=== PATIENT | female | born 1970 | race Caucasian/White ===

== ENCOUNTER 2018-08-07 18:07 | Emergency (ER) | payer OTHER ==
[2018-08-07 18:15] VITALS: TEMP 98.2
[2018-08-07] MEDS ORDERED: KETOROLAC 30 MG/ML 1 ML VIAL IM STA (19:06)
[2018-08-07] MEDS ORDERED: HYDROcodone/APAP 5-325MG 1 EACH TAB PO STA (19:06)
[2018-08-07] MEDS ORDERED: METOPROLOL TARTRATE 25 MG TAB PO STA (19:07)
--- NOTE | 2018-08-07 19:50 | ED ---
General Adult HPI - General Chief complaint: Recheck/Abnormal Lab/Rx Stated complaint: leg pain -recheck Time Seen by Provider: 08/07/18 18:53 Source: patient Mode of arrival: wheelchair Limitations: no limitations - History of Present Illness Initial comments: 47-year-old female patient presents to the emergency department for a chief complaint of right leg pain times one day. Patient states that yesterday she was seen here and diagnosed with a proximal fibula fracture and ankle sprain of the right leg. She states that she has not yet picked up her pain medication but has had severe pain for the past day. She states she cannot ambulate on the right leg. She states she wants to make sure nothing is wrong under the cast. Patient has no other complaints at this time including shortness of breath , chest pain, abdominal pain, nausea or vomiting, headache, or visual changes. - Related Data Home Medications Medication Instructions Recorded Confirmed Metoprolol Succinate [Toprol XL] 50 mg PO DAILY 07/15/16 08/07/18 Ammonium Lactate Lotion 1 applic TOPICAL DAILY 08/07/18 08/07/18 [Lac-Hydrin 12% Lotion] Clindamycin Phosphate [Clindagel 1 applic TOPICAL DAILY 08/07/18 08/07/18 1%] Doxycycline Monohydrate 50 mg PO DAILY 08/07/18 08/07/18 Loratadine [Claritin] 10 mg PO DAILY 08/07/18 08/07/18 Previous Rx's Medication Instructions Recorded Hydrocodone/Acetaminophen [[place] 1 tab PO Q6HR PRN #12 tab 08/07/18 5-325] Allergies Allergy/AdvReac Type Severity Reaction Status Date / Time No Known Allergies Allergy Verified 08/07/18 18:15 Review of Systems ROS Statement: Those systems with pertinent positive or pertinent negative responses have been documented in the HPI. ROS Other: All systems not noted in ROS Statement are negative. Past Medical History Past Medical History: Hypertension History of Any Multi-Drug Resistant Organisms: None Reported Past Surgical History: Orthopedic Surgery, Tubal Ligation Past Psychological History: No Psychological Hx Reported Smoking Status: Current every day smoker Past Alcohol Use History: Rare Past Drug Use History: None Reported General Exam Limitations: no limitations General appearance: alert, in no apparent distress Head exam: Present: atraumatic, normocephalic Eye exam: Present: normal appearance, PERRL, EOMI. Absent: scleral icterus, conjunctival injection, periorbital swelling ENT exam: Present: normal exam, mucous membranes moist Neck exam: Present: normal inspection, full ROM. Absent: tenderness, meningismus, lymphadenopathy Respiratory exam: Present: normal lung sounds bilaterally. Absent: respiratory distress, wheezes, rales, rhonchi, stridor Cardiovascular Exam: Present: regular rate, normal rhythm, normal heart sounds. Absent: systolic murmur, diastolic murmur, rubs, gallop, clicks Extremities exam: Present: full ROM (Patient able to move all digits of the right foot), tenderness (Tenderness to the right lateral knee tenderness to the right ankle), normal capillary refill (Capillary refill less than 2 seconds and DP pulse 2+ in the right lower extremity), other (Sensation intact in the right lower extremity) Course Vital Signs 08/07/18 08/07/18 08/07/18 18:11 20:10 20:48 Temperature 98.2 F Pulse Rate 101 H Respiratory 16 Rate Blood Pressure 208/89 204/99 205/101 O2 Sat by Pulse 96 Oximetry 08/07/18 08/07/18 21:00 21:45 Temperature Pulse Rate 80 Respiratory 18 Rate Blood Pressure 206/112 177/95 O2 Sat by Pulse 97 Oximetry Procedures - Procedures Initial comment: Neurovascular intact before splint application Indication: proximal femur fracutre Type: Posterior short leg Wounds: no abrasions or lacerations underneath splint Neurovascular status: patient has sensation and movement of digits extending outside the splint, there is no cyanosis, capillary refill < 2 seconds Follow-up: patient given number for orthopedics and instructed to phone to make an appointment. Patient aware she can return to the Emergency Department if any difficulties. Medical Decision Making - Medical Decision Making 47-year-old female with a past medical history of hypertension presents to the emergency department for right leg pain. Patient was seen here yesterday for a fracture of the right proximal fibula. She states she is still having pain. Patient was given Toradol and [place] here in the emergency department. Splint was removed and right lower extremity was inspected. No severe swelling or ecchymosis noted. Neurovascular intact. Patient able to move all digits of the right foot. Splint was reapplied. Patient states her pain is much better at this time. Patient was hypertensive in the emergency department and was given multiple antihypertensive medications. Patient is aware and has a history of hypertension. She denies any symptoms. She will follow up with primary care for this in the next 1-2 days. She will go to her orthopedic appointment next Friday. Disposition Clinical Impression: Leg pain, Fibula fracture Disposition: HOME SELF-CARE Condition: Good Instructions: Leg Fracture (ED), Hypertension (ED) Additional Instructions: Please take Motrin for pain. If pain is severe take [place]. Rest ice and elevate the leg. Follow-up with orthopedics at your appointment on Friday. Return here to the emergency department if you have any worsening symptoms. Is patient prescribed a controlled substance at d/c from ED?: No Referrals: Carmel Souza MD [Primary Care Provider] - 1-2 days Time of Disposition: 22:11
[2018-08-07] MEDS ORDERED: cloNIDine HCL 0.1 MG TAB PO STA (20:17)
[2018-08-07] MEDS ORDERED: LABETALOL 5 MG/ML VIAL MDV IVP STA (21:03)
[2018-08-07 22:43] VITALS: BP 177/95; PULSE 80; RESP 18
== END 2018-08-07 22:14 | disposition home or self-care (01) ==
LOC: EC 18:07
DX: S82.401A Unspecified fracture of shaft of right fibula, initial encounter for closed fracture (principal); I10 Essential (primary) hypertension; F17.200 Nicotine dependence, unspecified, uncomplicated; Z79.899 Other long term (current) drug therapy; X50.9XXA Other and unspecified overexertion or strenuous movements or postures, initial encounter
CPT/HCPCS: 99283; 29515; 96372; J1885

== ENCOUNTER 2019-04-22 10:26 | Day surgery (SDC) | payer OTHER ==
[2019-04-20 11:07] VITALS: BMI 24.7
[~2019-04-22 10:26] MED LIST: LACTATED RINGERS 1,000 ML IV SCH; LIDOCAINE 1% 20 ML VIAL (10MG/ML) FOR IV START INTRADERMA PRN
[2019-04-22 10:48] VITALS: TEMP 97.5
[2019-04-22] MEDS ORDERED: MIDAZOLAM 2 MG/2 ML VIAL ONE (11:17)
[2019-04-22] MEDS ORDERED: fentaNYL (PF) 50 MCG/ML 2 ML AMP ONE (11:17)
[2019-04-22] MEDS ORDERED: PROPOFOL 10 MG/ML 20 ML VIAL IV ONE (11:17)
[2019-04-22 12:11] VITALS: RESP 16
--- NOTE | 2019-04-22 12:14 | P.PCN ---
Date of Procedure: 04/22/19 Description of Procedure: BRIEF HISTORY: Patient is a 48-year-old pleasant female scheduled for an elective colonoscopy as a part of screening for malignant neoplasm of the colon. Patient reports that recently she drank some mederos water accidentally and since that time has been having loose stool. PROCEDURE PERFORMED: Colonoscopy with biopsy. PREOPERATIVE DIAGNOSIS: Screening for malignant neoplasm of the colon, altered bowel habits. ESTIMATED BLOOD LOSS: Minimal. IV sedation per Anesthesia. PROCEDURE: After informed consent was obtained, the patient, was brought into the endoscopy unit. IV sedation was administered by Anesthesia under continuous monitoring. Digital rectal examination was normal. Initially the Olympus CF-190 flexible video colonoscope was then inserted in the rectum, gradually advanced into the cecum without any difficulty. Careful examination was performed as the scope was gradually being withdrawn. Ileocecal valve and the appendiceal orifice were visualized and appeared normal. Prep was excellent. Mucosa of the cecum, ascending colon, transverse colon, descending colon, sigmoid colon, and rectum appeared normal. Biopsies of the right and left colon were taken in the setting of diarrhea. Retroflexion was performed in the rectum and no lesions were seen, with mild internal hemorrhoids. The patient tolerated the procedure well. IMPRESSION: Normal-appearing colon from rectum to cecum. Random biopsies of the right and left colon in the setting of altered bowel habits and diarrhea. Mild internal hemorrhoids. RECOMMENDATIONS: Findings of this examination were discussed with the patient and her boyfriend. Okay to resume diet. Await pathology from biopsies. Repeat screening colonoscopy in 10 years or sooner if any signs or symptoms which warrant further evaluation develope.
[2019-04-22 12:38] VITALS: BP 155/89; PULSE 86
== END 2019-04-22 13:11 | disposition home or self-care (01) ==
LOC: ORWHC2ENDO 10:26
PROVIDERS: ATTEND Internal Medicine
DX: Z12.11 Encounter for screening for malignant neoplasm of colon (principal); K52.9 Noninfective gastroenteritis and colitis, unspecified; K64.8 Other hemorrhoids; I10 Essential (primary) hypertension; Z79.51 Long term (current) use of inhaled steroids; Z79.899 Other long term (current) drug therapy
CPT/HCPCS: 45380; 88305; 84703; J2250; J3010; J2704

== ENCOUNTER 2020-08-14 16:25 | Emergency (ER) | payer OTHER ==
[2020-08-14 16:31] VITALS: TEMP 98
[2020-08-14] MEDS ORDERED: HYDROmorphone 0.5 MG/0.5 ML SYRINGE IM STA ×2 (17:02→18:36)
--- NOTE | 2020-08-14 17:49 | XR ---
EXAMINATION TYPE: XR pelvis AP view DATE OF EXAM: 08/14/2020 COMPARISON: NONE HISTORY: Pain. Fall. TECHNIQUE: Single view FINDINGS: The pelvic ring is intact. Proximal femurs and hip joints are intact. There is no hip dyspl leland. Sacroiliac joints appear normal. IMPRESSION: Normal exam. No fracture.
--- NOTE | 2020-08-14 17:50 | XR ---
EXAMINATION TYPE: XR lumbar spine 2 or 3V DATE OF EXAM: 08/14/2020 COMPARISON: NONE HISTORY: Pain. Fall. TECHNIQUE: 3 views FINDINGS: There is 4 mm anterior subluxation of L4 in relation L5. There is no spondylolysis. There i s no lumbar compression fracture. Sacroiliac joints are normal. IMPRESSION: There is a mild degenerative first-degree L4-5 spondylolisthesis. No fracture seen.
--- NOTE | 2020-08-14 17:55 | XR ---
EXAMINATION TYPE: XR sacrum coccyx DATE OF EXAM: 08/14/2020 COMPARISON: NONE HISTORY: Pain. TECHNIQUE: 3 views FINDINGS: These segments have normal alignment. I see no fracture. Sacroiliac joints are intact. IMPRESSION: Negative sacrum and coccyx exam.
[2020-08-14] MEDS ORDERED: cloNIDine HCL 0.1 MG TAB PO STA (18:36)
--- NOTE | 2020-08-14 18:36 | ED ---
General Adult HPI - General Source: patient Mode of arrival: ambulatory Limitations: no limitations <Eben Barker - Last Filed: 08/14/20 18:05> <Corey Medel - Last Filed: 08/14/20 20:42> - General Chief complaint: Back Pain/Injury Stated complaint: Fall/Back pain Time Seen by Provider: 08/14/20 16:57 - Related Data Home Medications Medication Instructions Recorded Confirmed Metoprolol Succinate [Toprol XL] 50 mg PO DAILY 07/15/16 08/14/20 Montelukast [Singulair] 10 mg PO DAILY 04/20/19 08/14/20 hydroCHLOROthiazide 25 mg PO DAILY 04/20/19 08/14/20 Ibuprofen [Motrin Ib] 800 mg PO Q8H PRN 08/14/20 08/14/20 Loratadine 10 mg PO DAILY 08/14/20 08/14/20 Allergies Allergy/AdvReac Type Severity Reaction Status Date / Time No Known Allergies Allergy Verified 08/14/20 18:58 Review of Systems ROS Other: All systems not noted in ROS Statement are negative. <Eben Barker P - Last Filed: 08/14/20 18:05> ROS Other: All systems not noted in ROS Statement are negative. <Corey Medel - Last Filed: 08/14/20 20:42> ROS Statement: Those systems with pertinent positive or pertinent negative responses have been documented in the HPI. Past Medical History Past Medical History: Cancer, Hypertension, Rheumatoid Arthritis (RA), Skin Disorder Additional Past Medical History / Comment(s): rosacea, varicose veins, hx ulcers, diarrhea, skin cancer History of Any Multi-Drug Resistant Organisms: None Reported Past Surgical History: Ear Surgery, Orthopedic Surgery, Tubal Ligation Additional Past Surgical History / Comment(s): spur removed from rt knee, Past Anesthesia/Blood Transfusion Reactions: No Reported Reaction Past Psychological History: No Psychological Hx Reported Smoking Status: Current every day smoker Past Alcohol Use History: None Reported Past Drug Use History: None Reported - Past Family History Mother Family Medical History: No Reported History <Eben Barker P - Last Filed: 08/14/20 18:05> General Exam Limitations: no limitations General appearance: alert, in no apparent distress Head exam: Present: atraumatic, normocephalic, normal inspection Eye exam: Present: normal appearance, PERRL, EOMI. Absent: scleral icterus, conjunctival injection, periorbital swelling ENT exam: Present: normal exam, mucous membranes moist Neck exam: Present: normal inspection. Absent: tenderness, meningismus, lymphadenopathy Respiratory exam: Present: normal lung sounds bilaterally. Absent: respiratory distress, wheezes, rales, rhonchi, stridor Cardiovascular Exam: Present: regular rate, normal rhythm, normal heart sounds. Absent: systolic murmur, diastolic murmur, rubs, gallop, clicks GI/Abdominal exam: Present: soft, normal bowel sounds. Absent: distended, tenderness, guarding, rebound, rigid Extremities exam: Present: normal capillary refill (Refill less than 2 seconds in lower extremities bilaterally.) Back exam: Absent: CVA tenderness (R), CVA tenderness (L), vertebral tenderness (Minimal generalized lower back tenderness including sacral area. Minimal bruising noted.) Neurological exam: Present: alert, normal gait (Normal gait ) <Eben Barker - Last Filed: 08/14/20 18:05> Course Vital Signs 08/14/20 08/14/20 08/14/20 16:29 18:07 19:45 Temperature 98 F Pulse Rate 114 H 99 95 Respiratory 18 18 17 Rate Blood Pressure 168/134 157/108 188/110 O2 Sat by Pulse 98 97 97 Oximetry 08/14/20 20:31 Temperature Pulse Rate 89 Respiratory 18 Rate Blood Pressure 164/105 O2 Sat by Pulse 97 Oximetry Medical Decision Making <Eben Barker - Last Filed: 08/14/20 18:05> <Corey Medel - Last Filed: 08/14/20 20:42> - Medical Decision Making HPI and physical exam as documented. Patient does have some slight bruising near the sacrum. X-ray of the lumbar spine shows mild degenerative first-degree L4-L5 spondylolisthesis without fracture seen. Pelvis x-ray is negative. Sacrum and coccyx x-rays are negative. Patient's pain did improve however her blood pressure was still elevated around 157/108. Discussed case with Dr. Medel who recommends giving oral clonidine. She does have a history of hypertension and took her blood pressure medication today about 4 hours ago. (Eben Barker) Patient reevaluated. Blood pressure 164/105. Patient states she is willing to buy a home blood pressure monitor and check it. Patient is advised if she has blood pressure similar to this she will need to take an additional half dose of her metoprolol. Patient is also advised. Close follow-up with primary care physician and may need additional medication changes. Patient is also updated on sacral x-ray showing possible fracture (Corey Medel) Disposition Is patient prescribed a controlled substance at d/c from ED?: No Time of Disposition: 18:41 <Eben Barker - Last Filed: 08/14/20 18:05> Is patient prescribed a controlled substance at d/c from ED?: No <Corey Medel - Last Filed: 08/14/20 20:42> Clinical Impression: Back pain, Fall, Hypertension Disposition: HOME SELF-CARE Condition: Good Instructions (If sedation given, give patient instructions): Acute Low Back Pain (ED), Sacral Fracture (ED), Hypertension (ED) Additional Instructions: Please take Motrin for pain. If pain is severe take Tylenol 3. Please follow- up with your doctor for pain as well as blood pressure. Return to the emergency room if you have any worsening symptoms. Please follow-up with primary care physician in the next day or 2 for recheck. Have primary care physician recheck blood pressure. If blood pressure at home as high similar to today, please take an additional one half of your metoprolol. Return for uncontrolled pain, weakness, uncontrolled blood pressure, worsening symptoms or other concerns. [id number] stool softeners Referrals: Carmel Souza MD [Primary Care Provider] - 1-2 days
[2020-08-14] MEDS ORDERED: ACET/COD 300 MG/30 MG STARTER PACK 6 TAB BTL PO STA (18:41)
[2020-08-14 20:32] VITALS: BP 164/105; PULSE 89; RESP 18
== END 2020-08-14 21:03 | disposition home or self-care (01) ==
LOC: EC 16:25
DX: S30.0XXA Contusion of lower back and pelvis, initial encounter (principal); W00.1XXA Fall from stairs and steps due to ice and snow, initial encounter; I10 Essential (primary) hypertension; F17.200 Nicotine dependence, unspecified, uncomplicated; Z79.51 Long term (current) use of inhaled steroids; Z79.899 Other long term (current) drug therapy; Z85.828 Personal history of other malignant neoplasm of skin
CPT/HCPCS: 99283 ×2; 96372 ×3; 72100; 72170; 72220; J1170

== ENCOUNTER 2020-09-26 16:01 | Emergency (ER) | payer OTHER ==
[2020-09-26 16:07] VITALS: RESP 18; TEMP 98.1
[2020-09-26] MEDS ORDERED: DIPH,PERTUS(ACELL)TETVAC-LF 0.5 ML VIAL IM ONE (16:31)
[2020-09-26] MEDS ORDERED: METOPROLOL SUCCINATE (ER) 50 MG TAB.ER.24H PO STA (16:31)
[2020-09-26] MEDS ORDERED: LIDOCAINE 1% INJ 10MG/ML (20 ML MDV) SQ ONE (16:31)
--- NOTE | 2020-09-26 17:04 | ED ---
General Adult HPI - General Chief complaint: Wound/Laceration Stated complaint: Fall, L Arm Lac Time Seen by Provider: 09/26/20 16:14 Source: patient, RN notes reviewed Mode of arrival: ambulatory Limitations: no limitations - History of Present Illness Initial comments: 49-year-old female presents to the emergency department for a chief medical laceration to the left arm. Patient was in her basement last night when she tripped and fell. Her arm hit a wall which is apparently of rocks and cut her arm. She did not hit her head. She has not had any other injuries. She does have a laceration noted to the forearm and an L-shaped. She states she did not come in last night because she was afraid of covid. Patient reports she is not up-to-date on tetanus. She denies any other injuries. She did not hit her head. She denies any pain in her elbow wrist or shoulder.Patient has no other complaints at this time including shortness of breath, chest pain, abdominal pain, nausea or vomiting, headache, or visual changes. - Related Data Home Medications Medication Instructions Recorded Confirmed Metoprolol Succinate [Toprol XL] 50 mg PO DAILY 07/15/16 08/14/20 Montelukast [Singulair] 10 mg PO DAILY 04/20/19 08/14/20 hydroCHLOROthiazide 25 mg PO DAILY 04/20/19 08/14/20 Ibuprofen [Motrin Ib] 800 mg PO Q8H PRN 08/14/20 08/14/20 Loratadine 10 mg PO DAILY 08/14/20 08/14/20 Previous Rx's Medication Instructions Recorded Cephalexin [Keflex] 500 mg PO Q6HR 7 Days #32 cap 09/26/20 Allergies Allergy/AdvReac Type Severity Reaction Status Date / Time No Known Allergies Allergy Verified 09/26/20 16:07 Review of Systems ROS Statement: Those systems with pertinent positive or pertinent negative responses have been documented in the HPI. ROS Other: All systems not noted in ROS Statement are negative. Past Medical History Past Medical History: Cancer, Hypertension, Rheumatoid Arthritis (RA), Skin Disorder Additional Past Medical History / Comment(s): rosacea, varicose veins, hx ulcers, diarrhea, skin cancer History of Any Multi-Drug Resistant Organisms: None Reported Past Surgical History: Ear Surgery, Orthopedic Surgery, Tubal Ligation Additional Past Surgical History / Comment(s): spur removed from rt knee, Past Anesthesia/Blood Transfusion Reactions: No Reported Reaction Past Psychological History: No Psychological Hx Reported Smoking Status: Current every day smoker Past Alcohol Use History: None Reported Past Drug Use History: None Reported - Past Family History Mother Family Medical History: No Reported History General Exam Limitations: no limitations General appearance: alert, in no apparent distress Head exam: Present: atraumatic, normocephalic, normal inspection Eye exam: Present: normal appearance, PERRL, EOMI. Absent: scleral icterus, conjunctival injection, periorbital swelling ENT exam: Present: normal exam, mucous membranes moist Neck exam: Present: normal inspection, full ROM. Absent: tenderness, meningismus, lymphadenopathy Respiratory exam: Present: normal lung sounds bilaterally. Absent: respiratory distress, wheezes, rales, rhonchi, stridor Cardiovascular Exam: Present: regular rate, normal rhythm, normal heart sounds. Absent: systolic murmur, diastolic murmur, rubs, gallop, clicks Extremities exam: Present: normal capillary refill (Capillary refill less than 2 seconds, radial pulses 2+ in the left upper extremity), other (Patient has a 6 cm L-shaped laceration noted to the volar aspect of the left forearm. Crude tissue is exposed and wound isn't gaping. There is no evidence of foreign body.) Course Vital Signs 09/26/20 16:03 Temperature 98.1 F Pulse Rate 111 H Respiratory 18 Rate Blood Pressure 170/124 O2 Sat by Pulse 98 Oximetry Procedures - Laceration Laceration #1 Consent Obtained: verbal consent Indication: laceration Site: upper extremity Size (cm): 6 Description: linear (L-shaped) Depth: simple, single layer Anesthetic Used: lidocaine 1% Anesthesia Technique: local infiltration Amount (mls): 8 Pre-repair: wound explored, irrigated extensively (With saline pressure irrigation and scrubbed) Type of Sutures: nylon Size of Sutures: 4-0 Number of Sutures: 13 Technique: simple, interrupted Patient Tolerated Procedure: well, no complications Medical Decision Making - Medical Decision Making I discussed with patient that since this is an open wound for 20 hours there is high risk of infection and high risk of poor wound healing. Patient is aware. She did clean the wound out significantly at home when it happened. I did perform an x-ray which showed no fracture or foreign body seen. I then cleaned the wound without evidence of foreign body or tendon injury. She is able to move all fingers and flex the left wrist. Radial pulses 2+. Neurovascular status intact left upper extremity. 13 simple interrupted sutures were utilized to approximate wound margins. I again discussed risk of infection and return parameters. She will return in 10 days for suture removal otherwise Patient hypertensive in the emergency room as well as tachycardic. This is likely related to anxiety and pain however patient has run out of her metoprolol yesterday. She has an appointment with her primary care provider tomorrow to refill this. Disposition Clinical Impression: Laceration Disposition: HOME SELF-CARE Condition: Good Instructions (If sedation given, give patient instructions): Laceration (ED), Care For Your Stitches (ED) Additional Instructions: Please take antibiotic as directed. Please monitor for signs of infection such as spreading or streaking redness, drainage, or fever and return if these occur. Return if you have any other worsening symptoms. Otherwise return in 10 days for suture removal. Prescriptions: Cephalexin [Keflex] 500 mg PO Q6HR 7 Days #32 cap Is patient prescribed a controlled substance at d/c from ED?: No Referrals: Carmel Souza MD [Primary Care Provider] - 1-2 days Time of Disposition: 18:20
--- NOTE | 2020-09-26 17:12 | XR ---
EXAMINATION TYPE: XR forearm LT DATE OF EXAM: 09/26/2020 COMPARISON: NONE HISTORY: Laceration TECHNIQUE: 2 views FINDINGS: There is laceration soft tissue defect on the anterior aspect of the mid forearm. Radius an d ulna appear intact. There is no sign of a radiopaque foreign body. IMPRESSION: Laceration deformity. No fracture.
[2020-09-26] MEDS ORDERED: BACITRACIN OINT 1 EACH PACKET TOPICAL STA (18:18)
[2020-09-26] MEDS ORDERED: CEPHALEXIN 500MG STARTER PACK 4 CAP BTL PO STA (18:20)
[2020-09-26 18:27] VITALS: BP 204/103; PULSE 92
[2020-09-26] MEDS ORDERED: cloNIDine HCL 0.1 MG TAB PO STA (18:31)
== END 2020-09-26 19:04 | disposition home or self-care (01) ==
LOC: EC 16:01
DX: S41.112A Laceration without foreign body of left upper arm, initial encounter (principal); M60.9 Myositis, unspecified; I10 Essential (primary) hypertension; Z79.1 Long term (current) use of non-steroidal anti-inflammatories (NSAID); F17.200 Nicotine dependence, unspecified, uncomplicated; Z79.899 Other long term (current) drug therapy; Z23 Encounter for immunization; Z85.828 Personal history of other malignant neoplasm of skin; W01.0XXA Fall on same level from slipping, tripping and stumbling without subsequent striking against object, initial encounter; Y92.89 Other specified places as the place of occurrence of the external cause
CPT/HCPCS: 73090; 90715; 99282; 90471; 12002; J2001

== ENCOUNTER 2021-01-03 16:20 | Emergency (ER) | payer OTHER ==
[2021-01-03] MEDS ORDERED: SODIUM CHLORIDE 0.9% 500 ML 500 ML IV ONE (17:24)
[2021-01-03] MEDS ORDERED: SODIUM CHLORIDE 0.9% 1,000 ML IV ONE (17:24)
[2021-01-03 17:48] LABS: Basophils % (A) 1 %; Eosinophils # (A) 0.2 k/uL (0-0.7); Eosinophils % (A) 3 %; HCT 32.1 % (34.0-46.0); HGB 11.1 gm/dL (11.4-16.0); Lymphocytes # (A) 1.5 k/uL (1.0-4.8); Lymphocytes % (A) 29 %; MCH 33.8 pg (25.0-35.0); MCHC 34.5 g/dL (31.0-37.0); MCV 97.8 fL (80.0-100.0); Mean Platelet Volume 7.2; Monocytes # (A) 0.2 k/uL (0-1.0); Monocytes % (A) 4 %; Neutrophils # (A) 3.3 k/uL (1.3-7.7); Neutrophils % (A) 63 %; Platelet Count 285 k/uL (150-450); RBC 3.28 m/uL (3.80-5.40); RDW 13.7 % (11.5-15.5); WBC 5.3 k/uL (3.8-10.6)
[2021-01-03 17:52] LABS: Appearance,Urine Cloudy (Clear); Bacteria,Urine Moderate /hpf; Bilirubin,Urine Negative (Negative); Blood,Urine Trace (Negative); Color,Urine Light Yellow; Glucose,Urine (UA) Negative (Negative); Hyaline Casts,Urine 4 /lpf (0-2); Ketones,Urine Negative (Negative); Leukocyte Esterase,Urine Large (Negative); Mucus,Urine Rare /hpf; Nitrite,Urine Negative (Negative); Protein,Urine Trace (Negative); RBC,Urine 26 /hpf (0-5); Specific Gravity,Urine 1.008 (1.001-1.035); Squamous Epithelial Cell,Urine 33 /hpf (0-4); Urobilinogen,Urine <2.0 mg/dL (<2.0); WBC,Urine 42 /hpf (0-5)
[2021-01-03 17:53] VITALS: RESP 18
[2021-01-03 17:57] LABS: Calcium 9.6 mg/dL (8.4-10.2); Potassium 4.1 mmol/L (3.5-5.1); Total Bilirubin 0.3 mg/dL (0.2-1.3); Total Protein 6.8 g/dL (6.3-8.2)
--- NOTE | 2021-01-03 18:06 | ED ---
General Adult HPI - General Chief complaint: Recheck/Abnormal Lab/Rx Stated complaint: Low BP, sent from dr Time Seen by Provider: 01/03/21 17:32 Source: patient, RN notes reviewed Mode of arrival: wheelchair Limitations: no limitations - History of Present Illness Initial comments: This a 50-year-old female presents emergency Department with chief complaint of low blood pressure. Patient states she went to her PCP for regular checkup but states that she was noted to have a blood pressure 90/60. She does admit that she's had increased diarrhea, increased output. Patient denies any chest pain or shortness of breath patient states she felt lightheaded earlier but feels fine now no complaints of abdominal pain. Patient denies any other significant complaints or medication changes. - Related Data Home Medications Medication Instructions Recorded Confirmed Metoprolol Succinate [Toprol XL] 50 mg PO DAILY 07/15/16 08/14/20 Montelukast [Singulair] 10 mg PO DAILY 04/20/19 08/14/20 hydroCHLOROthiazide 25 mg PO DAILY 04/20/19 08/14/20 Ibuprofen [Motrin Ib] 800 mg PO Q8H PRN 08/14/20 08/14/20 Loratadine 10 mg PO DAILY 08/14/20 08/14/20 Previous Rx's Medication Instructions Recorded Cephalexin [Keflex] 500 mg PO Q6HR 7 Days #32 cap 09/26/20 Allergies Allergy/AdvReac Type Severity Reaction Status Date / Time No Known Allergies Allergy Verified 01/03/21 16:49 Review of Systems ROS Statement: Those systems with pertinent positive or pertinent negative responses have been documented in the HPI. ROS Other: All systems not noted in ROS Statement are negative. Past Medical History Past Medical History: Cancer, Hypertension, Rheumatoid Arthritis (RA), Skin Disorder Additional Past Medical History / Comment(s): rosacea, varicose veins, hx ulcers, diarrhea, skin cancer History of Any Multi-Drug Resistant Organisms: None Reported Past Surgical History: Ear Surgery, Orthopedic Surgery, Tubal Ligation Additional Past Surgical History / Comment(s): spur removed from rt knee, Past Anesthesia/Blood Transfusion Reactions: No Reported Reaction Past Psychological History: No Psychological Hx Reported Smoking Status: Current every day smoker Past Alcohol Use History: None Reported Past Drug Use History: None Reported - Past Family History Mother Family Medical History: No Reported History General Exam Limitations: no limitations General appearance: alert, in no apparent distress Head exam: Present: atraumatic, normocephalic, normal inspection Eye exam: Present: normal appearance, PERRL, EOMI. Absent: scleral icterus, conjunctival injection, periorbital swelling ENT exam: Present: normal exam, normal oropharynx, mucous membranes moist Neck exam: Present: normal inspection, full ROM. Absent: tenderness, meningismus, lymphadenopathy Respiratory exam: Present: normal lung sounds bilaterally. Absent: respiratory distress, wheezes, rales, rhonchi, stridor Cardiovascular Exam: Present: regular rate, normal rhythm, normal heart sounds. Absent: systolic murmur, diastolic murmur, rubs, gallop, clicks GI/Abdominal exam: Present: soft, normal bowel sounds. Absent: distended, tenderness, guarding, rebound, rigid Course Vital Signs 01/03/21 01/03/21 01/03/21 16:47 17:50 18:20 Temperature 97.4 F L Pulse Rate 93 88 85 Respiratory 20 18 18 Rate Blood Pressure 106/71 92/60 96/70 O2 Sat by Pulse 98 98 100 Oximetry 01/03/21 19:02 Temperature 97.8 F Pulse Rate 89 Respiratory 18 Rate Blood Pressure 103/69 O2 Sat by Pulse 98 Oximetry Medical Decision Making - Medical Decision Making Patient was sent in for possible hypotension. Patient was given fluids that she's had excessive diarrhea. Patient has found to be slightly dehydrated, evidence of urinary tract infection. Patient does have a kidney injury though she was hydrated. Patient is asymptomatic she has no fatigue shortness of breath, dizziness or lightheadedness time. Patient states she feels control discharge she was discussed possible admission but states that she'll recheck her labs with her PCP she will hold her hydrochlorothiazide and metoprolol. - Lab Data Result diagrams: 01/03/21 17:41 01/03/21 17:41 Lab Results 01/03/21 01/03/21 01/03/21 Range/Units 17:41 17:41 17:41 WBC 5.3 (3.8-10.6) k/uL RBC 3.28 L (3.80-5.40) m/uL Hgb 11.1 L (11.4-16.0) gm/dL Hct 32.1 L (34.0-46.0) % MCV 97.8 (80.0-100.0) fL MCH 33.8 (25.0-35.0) pg MCHC 34.5 (31.0-37.0) g/dL RDW 13.7 (11.5-15.5) % Plt Count 285 (150-450) k/uL MPV 7.2 Neutrophils % 63 % Lymphocytes % 29 % Monocytes % 4 % Eosinophils % 3 % Basophils % 1 % Neutrophils # 3.3 (1.3-7.7) k/uL Lymphocytes # 1.5 (1.0-4.8) k/uL Monocytes # 0.2 (0-1.0) k/uL Eosinophils # 0.2 (0-0.7) k/uL Basophils # 0.0 (0-0.2) k/uL Sodium 136 L (137-145) mmol/L Potassium 4.1 (3.5-5.1) mmol/L Chloride 100 (98-107) mmol/L Carbon Dioxide 26 (22-30) mmol/L Anion Gap 10 mmol/L BUN 37 H (7-17) mg/dL Creatinine 1.43 H (0.52-1.04) mg/dL Est GFR (CKD-EPI)AfAm 49 (>60 ml/min/1.73 sqM) Est GFR (CKD-EPI)NonAf 42 (>60 ml/min/1.73 sqM) Glucose 137 H (74-99) mg/dL Calcium 9.6 (8.4-10.2) mg/dL Total Bilirubin 0.3 (0.2-1.3) mg/dL AST 89 H (14-36) U/L ALT 62 H (4-34) U/L Alkaline Phosphatase 97 (38-126) U/L Total Protein 6.8 (6.3-8.2) g/dL Albumin 4.0 (3.5-5.0) g/dL Urine Color Light Yellow Urine Appearance Cloudy H (Clear) Urine pH 5.0 (5.0-8.0) Ur Specific [place] 1.008 (1.001-1.035) Urine Protein Trace H (Negative) Urine Glucose (UA) Negative (Negative) Urine Ketones Negative (Negative) Urine Blood Trace H (Negative) Urine Nitrite Negative (Negative) Urine Bilirubin Negative (Negative) Urine Urobilinogen <2.0 (<2.0) mg/dL Ur Leukocyte Esterase Large H (Negative) Urine RBC 26 H (0-5) /hpf Urine WBC 42 H (0-5) /hpf Ur Squamous Epith Cells 33 H (0-4) /hpf Urine Bacteria Moderate H (None) /hpf Hyaline Casts 4 H (0-2) /lpf Urine Mucus Rare H (None) /hpf Disposition Clinical Impression: Acute kidney injury, Dehydration, Diarrhea Disposition: HOME SELF-CARE Condition: Stable Instructions (If sedation given, give patient instructions): Dehydration (ED) Additional Instructions: Please stop your hydrochlorothiazide and metoprolol. Please monitor blood pressure. Please follow-up with PCP for recheck labs. Please return to the Emergency Department if symptoms worsen or any other concerns. Is patient prescribed a controlled substance at d/c from ED?: No Referrals: Carmel Souza MD [Primary Care Provider] - 1-2 days Time of Disposition: 19:09
[2021-01-03 19:03] VITALS: BP 103/69; PULSE 89; TEMP 97.8
== END 2021-01-03 19:22 | disposition home or self-care (01) ==
LOC: EC 16:20
DX: N17.9 Acute kidney failure, unspecified (principal); E86.0 Dehydration; I10 Essential (primary) hypertension; F17.200 Nicotine dependence, unspecified, uncomplicated; Z85.828 Personal history of other malignant neoplasm of skin
CPT/HCPCS: 36415; 80053; 81001; 85025; 87086; 93005; 96360; 99285

== ENCOUNTER → 2021-11-16 | Outpatient (CLI) | payer OTHER ==
--- NOTE | 2021-11-16 12:29 | US ---
EXAMINATION TYPE: US abdomen complete DATE OF EXAM: 11/16/2021 COMPARISON: NONE CLINICAL HISTORY: R74.8. Abnormal labs EXAM MEASUREMENTS: Liver Length: 13.8 cm Gallbladder Wall: 0.2 cm CBD: 0.3 cm Spleen: 6.9 cm Right Kidney: 8.6 x 4.9 x 4.0 cm Left Kidney: 8.9 x 4.5 x 5.0 cm Pancreas: wnl Liver: Appears echogenic and coarse Gallbladder: wnl Evidence for sonographic Nova's sign: neg CBD: wnl Spleen: wnl Right Kidney: No hydronephrosis or masses seen Left Kidney: No hydronephrosis or masses seen Upper IVC: wnl Abd Aorta: limited visualization of distal Aorta, no AAA seen visualized with portions seen. The intrahepatic portion of the IVC and proximal abdominal aorta are within normal limits. There is no evidence of cholelithiasis. Common bile duct is unremarkable. The visualized portions of the krueger creas are homogenous. The spleen is unremarkable. Kidneys are symmetric and free of hydronephrosis. No renal lesions are seen. IMPRESSION: Correlate for hepatic steatosis.
== END | disposition home or self-care (01) ==
LOC: RADUSWWP 11:54
PROVIDERS: ATTEND Family Medicine
DX: R74.8 Abnormal levels of other serum enzymes (principal)
CPT/HCPCS: 76700

== ENCOUNTER → 2022-06-14 | Outpatient (CLI) | payer OTHER ==
--- NOTE | 2022-06-14 17:19 | US ---
EXAMINATION TYPE: US thyroid st tissue head/neck DATE OF EXAM: 06/14/2022 COMPARISON: NONE CLINICAL HISTORY: R59.0 ENLARGED LYMPH NODES, R221. Patient states having bilateral neck swelling nathan ost 2 weeks ago but has decreased in size. Area of concern scanned. No prominent or enlarged lymph nodes seen in right neck. Left neck lymph n ode seen with short axis measurement = 0.7 cm and cortical thickness= 5.8 mm. IMPRESSION: No evidence for mass or adenopathy. Subcentimeter lymph nodes identified.
== END | disposition home or self-care (01) ==
LOC: RADUSWWP 16:38
PROVIDERS: ATTEND Family Medicine
DX: R59.0 Localized enlarged lymph nodes (principal)
CPT/HCPCS: 76536

== ENCOUNTER 2022-08-16 14:24 | Emergency (ER) | payer OTHER ==
[2022-08-16] MEDS ORDERED: HYDROmorphone 0.5 MG/0.5 ML SYRINGE IVP STA (17:09)
[2022-08-16] MEDS ORDERED: ONDANSETRON ODT 4 MG TAB PO STA (17:09)
[2022-08-16] MEDS ORDERED: predniSONE 50 MG TAB PO STA (17:09)
--- NOTE | 2022-08-16 17:18 | ED ---
General Adult HPI - General Chief complaint: Extremity Problem,Nontraumatic Stated complaint: Hand pain Time Seen by Provider: 08/16/22 16:49 Source: patient Mode of arrival: ambulatory Limitations: no limitations - History of Present Illness Initial comments: 51-year-old female presents to the emergency Department with complaints of bilateral hand pain and swelling. Patient states she has a history of rheumatoid arthritis and reports this is typical of a flareup for her. States she took Motrin at home prior to arrival with no improvement. Does take Enbrel injections and has had cortisone injections in the past. States she called her process controller office today but they are closed. 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 Patient denies fever, chills, headache, chest pain, shortness breath, abdominal pain, nausea, vomiting, diarrhea, dysuria, or hematuria. - Related Data Home Medications Medication Instructions Recorded Confirmed Metoprolol Succinate [Toprol XL] 50 mg PO DAILY 07/15/16 08/14/20 Montelukast [Singulair] 10 mg PO DAILY 04/20/19 08/14/20 hydroCHLOROthiazide 25 mg PO DAILY 04/20/19 08/14/20 Ibuprofen [Motrin Ib] 800 mg PO Q8H PRN 08/14/20 08/14/20 Loratadine 10 mg PO DAILY 08/14/20 08/14/20 Previous Rx's Medication Instructions Recorded Cephalexin [Keflex] 500 mg PO Q6HR 7 Days #32 cap 09/26/20 Cephalexin [Keflex] 500 mg PO Q8HR #21 cap 01/03/21 Naproxen [Naprosyn] 500 mg PO BID PRN #30 tab 08/16/22 predniSONE 50 mg PO DAILY #5 tab 08/16/22 Allergies Allergy/AdvReac Type Severity Reaction Status Date / Time No Known Allergies Allergy Verified 08/16/22 15:28 Review of Systems ROS Statement: Those systems with pertinent positive or pertinent negative responses have been documented in the HPI. ROS Other: All systems not noted in ROS Statement are negative. Past Medical History Past Medical History: Cancer, Hypertension, Rheumatoid Arthritis (RA), Skin Disorder Additional Past Medical History / Comment(s): rosacea, varicose veins, hx ulcers, diarrhea, skin cancer History of Any Multi-Drug Resistant Organisms: None Reported Past Surgical History: Ear Surgery, Orthopedic Surgery, Tubal Ligation Additional Past Surgical History / Comment(s): spur removed from rt knee, Past Anesthesia/Blood Transfusion Reactions: No Reported Reaction Past Psychological History: No Psychological Hx Reported Smoking Status: Current every day smoker Past Alcohol Use History: Occasional Past Drug Use History: None Reported - Past Family History Mother Family Medical History: No Reported History General Exam Limitations: no limitations General appearance: alert, in no apparent distress, anxious (Well-developed, well-nourished female in no acute distress, though is moderately uncomfortable and tearful due to pain. Initial heart rate is elevated, likely due to pain as she is afebrile and joints are not erythematous.) ENT exam: Present: normal exam, normal oropharynx, mucous membranes moist Respiratory exam: Present: normal lung sounds bilaterally. Absent: respiratory distress, wheezes, rales, rhonchi, stridor Cardiovascular Exam: Present: regular rate, normal rhythm, normal heart sounds. Absent: systolic murmur, diastolic murmur, rubs, gallop, clicks GI/Abdominal exam: Present: soft, normal bowel sounds. Absent: distended, tenderness, guarding, rebound, rigid Right Elbow exam: Present: normal inspection, full ROM Forearm Wrist exam: Present: tenderness, swelling (Mild swelling of the wrist. Tenderness upon palpation and with movement.), other (Radial pulse 2+). Absent: erythema Hand Wrist exam: Present: tenderness (Tenderness upon palpation diffusely), swelling (Mild swelling of digits 1, 2, and 3.), other (No loss of sensation). Absent: erythema Vascular: Present: normal capillary refill, radial pulse, ulnar pulse. Absent: vascular compromise, Pallo Left Elbow exam: Present: normal inspection, full ROM. Absent: tenderness, swelling Forearm Wrist exam: Present: tenderness, swelling (Mild swelling of the left wrist and nonlocalized tenderness upon palpation.). Absent: erythema Hand Wrist exam: Present: tenderness, swelling (Mild swelling of second and third digits), other (No loss of sensation). Absent: full ROM (Range of motion limited by pain), erythema Vascular: Present: normal capillary refill, radial pulse, ulnar pulse. Absent: vascular compromise, Pallo Neurological exam: Present: alert, oriented X3, normal gait Psychiatric exam: Present: anxious Skin exam: Present: warm, dry, intact, normal color. Absent: rash Course Vital Signs 08/16/22 08/16/22 15:26 18:26 Temperature 98.5 F 98.8 F Pulse Rate 114 H 110 H Respiratory 22 18 Rate Blood Pressure 148/79 128/68 O2 Sat by Pulse 99 95 Oximetry - Reevaluation(s) Reevaluation #1: 08/16/22 17:35 Upon reassessment, patient continues to wait for her pain medication to be administered. However we did discuss discharge plan of care including naproxen and prednisone. She is instructed to not take Motrin and verbalizes understanding. Medical Decision Making - Medical Decision Making 51-year-old female with a past medical history of rheumatoid arthritis presents to the emergency Department with complaints of bilateral hand pain and swelling worsening over the past 2 days. Upon exam, patient appears moderately uncomfortable but in no acute distress. Physical exam findings to reveal mild swelling and bilateral wrists and digits of both hands. Pain is worsened with palpation and range of motion exercises. She is afebrile, though tachycardic, likely attributed to pain. She did take Motrin prior to arrival with no improvement. Was given prednisone and Dilaudid in the emergency department with some improvement. Will be discharged home to follow up with her process controller on Friday. Prescribed a short course of oral steroid and Naprosyn for anti- inflammatory properties. Was instructed not to take Motrin while taking this medicine. Return parameters discussed in detail. Patient verbalizes understand ing and agrees with this plan. Attending: Leroy. Disposition Clinical Impression: Arthralgia of hands, bilateral Disposition: HOME SELF-CARE Condition: Stable Instructions (If sedation given, give patient instructions): Rheumatoid Arthritis (ED) Additional Instructions: Take prednisone as prescribed. Naprosyn is prescribed for pain. Do not take Motrin on you were taking this medication. Clinical your process controller schedule a follow-up appointment on Friday. Return to the emergency department with any new, worsening, or concerning symptoms. Prescriptions: Naproxen [Naprosyn] 500 mg PO BID PRN #30 tab PRN Reason: Pain predniSONE 50 mg PO DAILY #5 tab Is patient prescribed a controlled substance at d/c from ED?: No Referrals: Carmel Souza MD [Primary Care Provider] - 1-2 days
[2022-08-16] MEDS ORDERED: HYDROmorphone 0.5 MG/0.5 ML SYRINGE IM STA (18:14)
[2022-08-16 18:27] VITALS: BP 128/68; PULSE 110; RESP 18; TEMP 98.8
== END 2022-08-16 18:26 | disposition home or self-care (01) ==
LOC: EC 14:24
DX: M25.542 Pain in joints of left hand (principal); M25.541 Pain in joints of right hand; F17.200 Nicotine dependence, unspecified, uncomplicated; I10 Essential (primary) hypertension; M06.9 Rheumatoid arthritis, unspecified; Z79.899 Other long term (current) drug therapy
CPT/HCPCS: 99283; 96374; 96372; J7512; J1170

== ENCOUNTER → 2023-03-10 | Outpatient (CLI) | payer OTHER ==
--- NOTE | 2023-03-10 16:50 | US ---
EXAMINATION TYPE: US pelvis complete transvag DATE OF EXAM: 03/10/2023 COMPARISON: NONE CLINICAL INDICATION: Female, 52 years old with history of N93.9 AUB; LMP 2 years ago, episode of vagi nal bleeding 6 months ago. Bladder stent TECHNIQUE: Transvaginal (TV) and Transabdominal (TA) . Transabdominal sonographic images of the pel vis were acquired. Transvaginal sonographic images were medically necessary to better assess the fol lowing anatomy: per order Date of LMP: 2 years ago EXAM MEASUREMENTS: Uterus: 6.7 x 2.8 x 3.7 cm Endometrial Stripe: 0.4 cm Right Ovary: unable to visualize Left Ovary: unable to visualize 1. Uterus: Anteverted heterogeneous 2. Endometrium: appears wnl 3. Right Ovary: Obscured by overlying bowel gas 4. Left Ovary: Obscured by overlying bowel gas 5. Bilateral Adnexa: appears wnl 6. Posterior cul-de-sac: wnl Urinary bladder: There is a stent within the urinary bladder. IMPRESSION: 1. Endometrium is within normal limits for thickness. 2. No evidence for acute process. 3. Ureteral stent partially visualized gallbladder.
--- NOTE | 2023-03-11 08:57 | MM ---
Reason for Exam: Screening (asymptomatic). Last mammogram was performed 1 year(s) and 1 month(s) ago. Patient History: Menarche at age 11. First Full-Term at age 25. Paternal aunt had breast cancer at or over age 50. Risk Values: Yudith 5 year model risk: 1.3%. NCI Lifetime model risk: 9.3%. Prior Study Comparison: 01/26/2022 Bilateral Screening Mammogram, Lenora Jhaveri. Tissue Density: The breast tissue is heterogeneously dense. This may lower the sensitivity of mammography. Findings: Analyzed By CAD. There is no suspicious group of microcalcifications or new suspicious mass in either breast. Overall Assessment: Negative, BI-RAD 1 Management: Screening Mammogram of both breasts in 1 year. . Patient should continue monthly self-breast exams. A clinical breast exam by your physician is recommended on an annual basis. This exam should not preclude additional follow-up of suspicious palpable abnormalities. Note on Yudith scores and lifetime risk: 1. A Yudith score greater than 3% is considered moderate risk. If this is the case, consider specialist referral to assess eligibility for a risk reducing agent. 2. If overall lifetime risk for the development of breast cancer is 20% or higher, the patient may qualify for future screening with alternating mammogram and breast MRI. Electronically signed and approved by: Ashley Almanza M.D. Radiologist
== END | disposition home or self-care (01) ==
LOC: RADUSWWP 14:23
PROVIDERS: ATTEND Obstetrics & Gynecology
DX: Z12.31 Encounter for screening mammogram for malignant neoplasm of breast (principal); N93.9 Abnormal uterine and vaginal bleeding, unspecified; Z80.3 Family history of malignant neoplasm of breast
CPT/HCPCS: 76830; 76856; 77063; 77067

== ENCOUNTER → 2023-03-13 | Outpatient (CLI) | payer OTHER ==
[2023-03-14 02:58] LABS: Blood Urea Nitrogen 24.3 mg/dL (9.0-27.0); Calcium 9.9 mg/dL (8.7-10.3); Carbon Dioxide 21.4 mmol/L (21.6-31.8); Chloride 105 mmol/L (96-109); Glucose 91 mg/dL (70-110); Potassium 5.1 mmol/L (3.5-5.5); Sodium 139 mmol/L (135-145)
[2023-03-14 03:11] LABS: HCT 38.2 % (37.2-46.3); HGB 12.1 d/dL (12.0-15.0); MCH 34.5 pg (27.0-32.0); MCHC 31.7 d/dL (32.0-37.0); MCV 108.8 FL (80.0-97.0); Mean Platelet Volume 10.3 FL (9.5-12.2); NRBC Per 100 WBC 0 X 10*3/uL (0.00-0.01); Platelet Count 317 X 10*3/uL (140-440); RBC 3.51 X 10*6/uL (4.10-5.20); RDW 13.2 % (11.5-14.5); WBC 6.51 X 10*3/uL (4.50-10.00)
[2023-03-14 03:14] LABS: Appearance,Urine Turbid (Clear); Bilirubin,Urine Negative (Negative); Blood,Urine Large (Negative); Color,Urine Yellow (Yellow); Ketones,Urine Negative (Negative); Nitrite,Urine Negative (Negative); PH, Urine 5.5; Specific Gravity,Urine 1.018 (1.001-1.030); Urobilinogen,Urine 0.2
[2023-03-14 04:16] LABS: Basophils # (A) 0.03 X 10*3/uL (0.00-0.10); Basophils % (A) 0.5 %; Eosinophils % (A) 6.1 %; Lymphocytes # (A) 2.22 X 10*3/uL (0.90-5.00); Lymphocytes % (A) 34.1 %; Macrocytosis (M) 2+; Monocytes % (A) 9.2 %; Neutrophils # (A) 3.25 X 10*3/uL (1.80-7.70); Neutrophils % (A) 49.9 %
== END | disposition home or self-care (01) ==
LOC: LABPAT 16:11
PROVIDERS: ATTEND Urology
DX: Z01.812 Encounter for preprocedural laboratory examination (principal); N20.1 Calculus of ureter; R31.29 Other microscopic hematuria
CPT/HCPCS: 80048; 81001; 85025; 87086

== ENCOUNTER 2023-03-18 12:45 | Day surgery (SDC) | payer OTHER ==
[~2023-03-18 12:45] MED LIST changes: +DEXAMETHASONE SOD PHOSPHATE 4 MG/ML 1 ML VIAL IV ONE; +HYDROmorphone 0.5 MG/0.5 ML SYRINGE IVP PRN; +LIDOCAINE 1% (10MG/ML) FOR IV START INTRADERMA PRN; -LIDOCAINE 1% 20 ML VIAL (10MG/ML) FOR IV START INTRADERMA PRN; +MIDAZOLAM 2 MG/2 ML VIAL IV PRN; +ONDANSETRON 4 MG/2 ML VIAL IVP ONE
--- NOTE | 2023-03-18 13:39 | XR ---
EXAMINATION TYPE: XR KUB DATE OF EXAM: 03/18/2023 1:03 PM INDICATION: Patient age:Female; 52 years old; Reason for study: kidney stones; COMPARISON: None. TECHNIQUE: One radiographic view of the abdomen was obtained. FINDINGS: Left ureteral stent with tips in appropriate position. Calcification in the expected locati on of the distal ureter measuring 2 mm may be a ureteral calculus. The bowel gas pattern is nonspecif ic without dilated loops of small or large bowel. There is no evidence for organomegaly or pneumoperi toneum. The osseous structures are intact. Fecal material and gas are demonstrated throughout the c olon and rectum. IMPRESSION: Left ureteral stent with calculus projecting near the distal portion of the ureteral stent which coul d be within the ureter.
--- NOTE | 2023-03-18 14:30 | P.HPIHPCON ---
History of Present Illness H&P Date: 03/18/23 Chief Complaint: Left ureteral stone This is a 49-year-old female with history of a 1.1 cm left-sided proximal stone, she is status post stent insertion. She presents today for left-sided ureteroscopy with holmium laser. Aware of the risk which includes but not limited to bleeding, infection, injury to the ureter. Risk of anesthesia was also discussed. She understood all the risk and agreed to proceed Consent for Procedure: I have explained the operation/procedure to the patient, including the risks, benefits, side effects, alternative therapies (including not receiving the proposed treatment or service), the likelihood of the patient achieving his/her goals, and potential recuperation problems for the procedure/sedation/analgesia, as well as any blood products, if indicated. I also explained to the patient the risks, benefits and side effects of the alternatives, as well as the risks related to not receiving the proposed procedure, care, treatment, or services. Past Medical History Past Medical History: Cancer, Hypertension, Rheumatoid Arthritis (RA), Skin Disorder Additional Past Medical History / Comment(s): rosacea, varicose veins, hx ulcers, diarrhea, skin cancer History of Any Multi-Drug Resistant Organisms: None Reported Past Surgical History: Ear Surgery, Orthopedic Surgery, Tonsillectomy, Tubal Ligation Additional Past Surgical History / Comment(s): spur removed from rt knee, kidney stent placed Past Anesthesia/Blood Transfusion Reactions: No Reported Reaction Smoking Status: Current every day smoker - Past Family History Mother Family Medical History: No Reported History Medications and Allergies Home Medications Medication Instructions Recorded Confirmed Type Metoprolol Succinate [Toprol XL] 50 mg PO DAILY 07/15/16 03/18/23 History hydroCHLOROthiazide 25 mg PO DAILY 04/20/19 03/18/23 History Ibuprofen [Motrin Ib] 800 mg PO Q8H PRN 08/14/20 03/18/23 History Loratadine 10 mg PO DAILY 08/14/20 03/18/23 History Naproxen [Naprosyn] 500 mg PO BID PRN #30 tab 08/16/22 03/18/23 Rx Allergies Allergy/AdvReac Type Severity Reaction Status Date / Time No Known Allergies Allergy Verified 03/18/23 13:21 Surgical - Exam Vital Signs Temp Pulse Resp BP Pulse Ox 97.0 F L 88 18 136/83 98 03/18/23 13:32 03/18/23 13:32 03/18/23 13:32 03/18/23 13:32 03/18/23 13:32 - General no distress, no pain - Eyes normal ocular movement, no pale - ENT normal nares, normal mucosa - Respiratory normal expansion, normal respiratory effort Assessment and Plan Assessment: OR for left-sided ureteroscopy, holmium laser lithotripsy, stone basketing and stent removal
[2023-03-18] MEDS ORDERED: ROCURONIUM 10 MG/ML (5 ML VIAL) IV ONE (14:33)
[2023-03-18] MEDS ORDERED: DEXAMETHASONE SOD PHOSPHATE 4 MG/ML 1 ML VIAL ONE (14:33)
[2023-03-18] MEDS ORDERED: LIDOCAINE 2% INJ 20 MG/ML (2 ML VIAL) ONE (14:33)
[2023-03-18] MEDS ORDERED: ALBUTEROL HFA INHALER INHALATION ONE (14:33)
[2023-03-18] MEDS ORDERED: fentaNYL (PF) 50 MCG/ML 2 ML AMP ONE (14:33)
[2023-03-18] MEDS ORDERED: NEOSTIGMINE 1 MG/ML 10 ML VIAL ONE (14:33)
[2023-03-18] MEDS ORDERED: GLYCOPYRROLATE 0.2 MG/ML 2 ML VIAL ONE (14:33)
[2023-03-18] MEDS ORDERED: SUCCINYLCHOLINE CHLORIDE 200 MG/10 ML VIAL IV ONE (14:33)
[2023-03-18] MEDS ORDERED: HYDROmorphone (PF) 1 MG/ML ONE (14:33)
[2023-03-18] MEDS ORDERED: PROPOFOL 10 MG/ML 20 ML VIAL IV ONE (14:33)
[2023-03-18] MEDS ORDERED: MIDAZOLAM 2 MG/2 ML VIAL ONE (14:33)
--- NOTE | 2023-03-18 15:37 | P.OP ---
Date of Procedure: 03/18/23 Preoperative Diagnosis: Left ureteral stone Postoperative Diagnosis: Same Procedure(s) Performed: Cystoscopy, left ureteroscopy, holmium laser lithotripsy, stone basketing and stent removal Implants: None Anesthesia: ANGELY Surgeon: Mihir Edmond Estimated Blood Loss (ml): 5 Pathology: other (Left ureteral stone) Condition: stable Disposition: PACU Indications for Procedure: This is a 49-year-old female with history of a 1.1 cm left-sided proximal stone, she is status post stent insertion. She presents today for left-sided ureteroscopy with holmium laser. Aware of the risk which includes but not limited to bleeding, infection, injury to the ureter. Risk of anesthesia was also discussed. She understood all the risk and agreed to proceed Operative Findings: Large stone in the renal pelvis Description of Procedure: Patient brought to the operating room, general anesthesia was induced. She was prepped and draped in sterile fashion and placed in dorsal lithotomy position. Cystoscopy fitted with 21-Persian sheath was inserted per urethra, cystoscopy was performed which showed no abnormality within the bladder. The stent was removed intact. Next a semirigid ureteroscope was advanced up the left ureteral orifice, the scope was advanced all the way up to the UPJ which showed no stones along the course of the ureter, pullback ureteroscopy was performed showed no injury to the ureter or any ureteral stones, as ureteroscope was withdrawn and a sensor wire was advanced through. Next under fluoroscopy 1214 Persian access sheath was passed over the wire into the proximal ureter. Next a flexible ureteroscope was inserted through the access sheath, renoscopy was performed which showed a large stone in the renal pelvis. Using the holmium laser the stone was dusted, sizable fragments were removed and sent for analysis. Repeat renoscopy showed no sizable stone or injury to the kidney. Pullback ureteroscopy was performed which showed no injury to the ureter or any ureteral stones, there was no ureteral edema thus a stent was not placed. The bladder was emptied at the end of the case. Patient tolerated procedure well was taken to recovery in stable condition
[2023-03-18 15:46] VITALS: TEMP 97
--- NOTE | 2023-03-18 15:55 | FL ---
Intraoperative/procedural fluoroscopic services were provided. Total fluoroscopy time is 6.8 seconds with a total of 1 submitted images to PACS. Please see the operative/procedural note for further deta ils. DAP: [id number] [id number]
[2023-03-18] MEDS ORDERED: KETOROLAC 15 MG/ML 1 ML VIAL IVP ONE (16:25)
[2023-03-18] MEDS ORDERED: LACTATED RINGERS 1,000 ML IV ONE (16:26)
[2023-03-18 17:30] VITALS: BP 148/78; PULSE 78; RESP 18
== END 2023-03-18 17:00 | disposition home or self-care (01) ==
LOC: OR 12:45
PROVIDERS: ATTEND Urology
DX: N20.1 Calculus of ureter (principal); I10 Essential (primary) hypertension; M06.9 Rheumatoid arthritis, unspecified; F17.200 Nicotine dependence, unspecified, uncomplicated; Z90.89 Acquired absence of other organs; Z98.51 Tubal ligation status; Z79.899 Other long term (current) drug therapy
CPT/HCPCS: 81025; 82365; 74018; 52353; C1769; J2250; J0330; J1100; J2710; J0690; J2405; J3010; J1170; J1885; J2704; J2001